=== PATIENT | female | born 1995 | race African-American/Black ===

== ENCOUNTER 2021-11-19 02:55 | Emergency (ER) | payer MEDICAID ==
[~2021-11-19] VITALS: Ht 165.1 cm; Wt 100.0 kg
[2021-11-19] MEDS ORDERED: IPRATROPIUM BROMIDE (0.02%) 0.5MG/2.5ML NEB HHN STA (03:24)
[2021-11-19] MEDS ORDERED: PREDNISONE 20MG TABLET PO STA (03:24)
[2021-11-19] MEDS ORDERED: ALBUTEROL (0.083%) 2.5MG/3ML NEB HHN STA (03:24)
[2021-11-19] MEDS ORDERED: IBUPROFEN 600MG TABLET PO ONE ×2 (03:30→04:45)
[2021-11-19] MEDS ORDERED: P20 MT (04:51)
[2021-11-19 05:27] VITALS: BP 115/60
== END 2021-11-19 05:25 | disposition home or self-care (01) ==
LOC: ER 02:55
DX: U07.1 COVID-19 (principal); J45.901 Unspecified asthma with (acute) exacerbation
CPT/HCPCS: 71045; 87426; 93005; 94640; 99285; C9803; J7512; Z7610

== ENCOUNTER 2022-06-10 15:20 | Emergency (ER) | payer MEDICAID ==
[~2022-06-10] VITALS: Ht 160 cm; Wt 151.0 kg
[~2022-06-10 15:20] MED LIST: P20 MT
[2022-06-10 15:27] VITALS: BP 138/74
== END 2022-06-10 20:30 | disposition left against medical advice (07) ==
LOC: ER 15:20
DX: Z53.21 Procedure and treatment not carried out due to patient leaving prior to being seen by health care provider (principal)
CPT/HCPCS: 99281

== ENCOUNTER 2022-07-28 06:37 | Emergency (ER) | payer MEDICAID ==
[~2022-07-28] VITALS: Ht 160 cm; Wt 163.0 kg
[2022-07-28] MEDS ORDERED: CETI10CA2 PO (07:59)
[2022-07-28] MEDS ORDERED: FLUT9.9S BOTHNSTRLS (07:59)
[2022-07-28 08:20] VITALS: BP 129/82
== END 2022-07-28 08:24 | disposition home or self-care (01) ==
LOC: ER 06:37
DX: B34.9 Viral infection, unspecified (principal); J45.909 Unspecified asthma, uncomplicated
CPT/HCPCS: 99281; 99283

== ENCOUNTER 2022-09-28 13:21 | Emergency (ER) | payer MEDICAID ==
[~2022-09-28] VITALS: Ht 160 cm; Wt 154.0 kg
[~2022-09-28 13:21] MED LIST changes: +CETI10CA2 PO; +FLUT9.9S BOTHNSTRLS
[2022-09-28 13:31] VITALS: BP 146/71; O2SAT 100
[2022-09-28 15:53] LABS: BASOPHILS % 1.4 % (0.0-2.0); EOSINOPHILS % 0.7 % (0.0-5.0); HEMATOCRIT. 38.8 % (36.0-48.0); HEMOGLOBIN. 13.1 g/dL (12.0-16.0); LYMPHOCYTES % 38.8 % (20.0-50.0); MEAN CORPUSCULAR HEMOGLOBIN 27.5 pg (28.0-32.0); MEAN CORPUSCULAR VOLUME 81.4 fL (81.0-99.0); MEAN PLATELET VOLUME 7.9 fl (7.4-10.4); MONOCYTES % 7.1 % (2.0-8.0); PLATELET 349 x1000/uL (130-400); RED BLOOD CELL COUNT 4.77 mill/uL (4.2-5.4); RED CELL DISTRIBUTION WIDTH 13.8 % (11.6-14.6)
[2022-09-28 15:59] LABS: CHLORIDE 107 mEq/L (98-107)
[2022-09-28 16:21] LABS: B-HCG QUANTITATIVE 3962 mIU/mL (<3)
[2022-09-28 19:10] LABS: CLARITY URINE CLOUDY (CLEAR); COLOR URINE DARK YELLOW (YELLOW); KETONES URINE TRACE (NEGATIVE); LEUKOCYTE ESTERASE URINE NEGATIVE (NEGATIVE); NITRITE URINE NEGATIVE (NEGATIVE); OCCULT BLOOD URINE NEGATIVE (NEGATIVE); PROTEIN URINE TRACE (NEGATIVE); SPECIFIC GRAVITY URINE 1.032 (1.005-1.030)
[2022-09-28] MEDS ORDERED: PREN-118 MT (19:13)
[2022-09-28 19:43] VITALS: PULSE 104; RESP 19; TEMP 98.3
== END 2022-09-28 19:46 | disposition home or self-care (01) ==
LOC: ER 13:32
DX: O26.891 Other specified pregnancy related conditions, first trimester (principal); Z3A.01 Less than 8 weeks gestation of pregnancy; J45.909 Unspecified asthma, uncomplicated
CPT/HCPCS: 36415; 76801; 80053; 81003; 81025; 84702; 85025; 86850; 86900; 99284

== ENCOUNTER 2022-12-07 09:11 | Emergency (ER) | payer MEDICAID ==
[~2022-12-07] VITALS: Ht 160 cm; Wt 151.0 kg
[~2022-12-07 09:11] MED LIST changes: +PREN-118 MT
[2022-12-07 09:23] VITALS: BP 148/85; PULSE 105; RESP 16; TEMP 98.7; O2SAT 99
[2022-12-07 11:13] LABS: CHLORIDE 108 mEq/L (98-107); INDEX HEMOLYSI 1 (1-3); INDEX ICTERIC 1 (1-4); INDEX LIPEMIC 1 (1-3); POTASSIUM 3.5 mEq/L (3.5-5.1); SODIUM 135 mEq/L (136-145)
[2022-12-07 11:18] LABS: BASOPHILS % 0.6 % (0.0-2.0); EOSINOPHILS % 1.1 % (0.0-5.0); HEMATOCRIT. 41.1 % (36.0-48.0); HEMOGLOBIN. 13.7 g/dL (12.0-16.0); LYMPHOCYTES % 28.1 % (20.0-50.0); MEAN CORPUSCULAR HEMOGLOBIN 27.1 pg (28.0-32.0); MEAN CORPUSCULAR HGB CONC 33.5 g/dL (31.0-37.0); MEAN PLATELET VOLUME 8.4 fl (7.4-10.4); MONOCYTES % 5.2 % (2.0-8.0); PLATELET 254 x1000/uL (130-400); RED BLOOD CELL COUNT 5.07 mill/uL (4.2-5.4); RED CELL DISTRIBUTION WIDTH 13.2 % (11.6-14.6); WHITE BLOOD COUNT 6.8 x1000/uL (4.5-11.0)
[2022-12-07 11:29] LABS: CLARITY URINE CLOUDY (CLEAR); COLOR URINE YELLOW (YELLOW); GLUCOSE URINE NEGATIVE (NEGATIVE); KETONES URINE NEGATIVE (NEGATIVE); LEUKOCYTE ESTERASE URINE TRACE (NEGATIVE); NITRITE URINE NEGATIVE (NEGATIVE); OCCULT BLOOD URINE 2+ (NEGATIVE); PROTEIN URINE NEGATIVE (NEGATIVE); SPECIFIC GRAVITY URINE 1.019 (1.005-1.030)
[2022-12-07 11:35] LABS: ALANINE AMINOTRANSFERASE 30 IU/L (13-61); ALBUMIN 3.1 g/dL (3.4-5.0); ASPARTATE AMINOTRANSFERASE 21 IU/L (15-37); B-HCG QUANTITATIVE 14387 mIU/mL (<3); BILIRUBIN TOTAL 0.3 mg/dL (0.1-1.0); CALCIUM 8.6 mg/dL (8.5-10.1); CARBON DIOXIDE 22 mEq/L (21-32); CREATININE 0.6 mg/dL (0.6-1.3); GLUCOSE 97 mg/dL (70-105); PROTEIN TOTAL 7.5 g/dL (6.0-8.3); UREA NITROGEN BLOOD 6 mg/dL (7-21)
[2022-12-07 12:47] LABS: SQUAMOUS EPITHELIAL CELL URINE 3+ /lpf (RARE/1+)
[2022-12-07 12:48] LABS: BACTERIA URINE 3+; WBC URINE 0-2 /hpf (0-2)
[2022-12-07 12:49] LABS: RBC URINE NONE SEEN /hpf (0-2)
== END 2022-12-07 13:01 | disposition home or self-care (01) ==
LOC: ER 09:11
DX: O20.0 Threatened abortion (principal); J45.909 Unspecified asthma, uncomplicated; Z3A.15 15 weeks gestation of pregnancy
CPT/HCPCS: 36415; 76805; 80053; 81003; 81025; 84702; 85025; 86850; 86900; 99284